=== PATIENT | male | born 1975 | race Caucasian/White ===

== ENCOUNTER → 2018-08-21 | Outpatient (REF) | payer BC ==
[2018-08-21 13:38] LABS: BASO % 0.6 % (0.0-1.0); EOS # 0.1 10^3/uL (0.0-0.50); EOS % 1.9 % (0.0-3.0); HEMATOCRIT 45.2 % (42.0-52.0); HEMOGLOBIN 14.9 g/dl (13.5-17.5); LYMPH # 2.1 10^3/uL (1.5-4.5); LYMPH % 33.3 % (24.0-44.0); MEAN CORPUSCULAR HEMOGLOBIN 29.7 pg (27.0-33.0); MEAN CORPUSCULAR VOLUME 90.2 fl (80.0-96.0); MONO # 0.4 10^3/uL (0.0-0.8); MONO % 5.8 % (0.0-5.0); NEUTROPHILS # 3.6 10^3/uL (1.8-7.7); NEUTROPHILS % 58.1 % (36.0-66.0); PLATELET COUNT, AUTOMATED 242 10^3/uL (150-450); RED BLOOD COUNT 5.01 10^6/uL (4.30-6.10); WHITE BLOOD COUNT 6.2 10^3/uL (4.0-10.0)
[2018-08-21 13:49] LABS: ALBUMIN 3.7 GM/DL (3.2-5.2); ALT/SGPT 41 U/L (12-78); BILIRUBIN,TOTAL 0.5 MG/DL (0.2-1.0); BLOOD UREA NITROGEN 18 MG/DL (7-18); CALCIUM LEVEL 9.3 MG/DL (8.5-10.1); CARBON DIOXIDE LEVEL 27 MEQ/L (21-32); CHLORIDE LEVEL 106 MEQ/L (98-107); CREATININE FOR GFR 0.71 MG/DL (0.70-1.30); GLOMERULAR FILTRATION RATE > 60.0 (>60); GLUCOSE, FASTING 202 MG/DL (70-100); POTASSIUM SERUM 4.2 MEQ/L (3.5-5.1); SODIUM LEVEL 140 MEQ/L (136-145); TOTAL PROTEIN 7.8 GM/DL (6.4-8.2)
[2018-08-21 14:56] LABS: ERYTHROCYTE SEDIMENTATION RATE 12 mm/hr (0-15)
== END ==
LOC: M LABNEURO 10:18
PROVIDERS: ATTEND Psychiatry & Neurology Neurology
DX: E11.9 Type 2 diabetes mellitus without complications (principal); H53.40 Unspecified visual field defects

== ENCOUNTER → 2018-12-30 | Outpatient (CLI) | payer BC ==
--- NOTE | 2019-01-07 01:23 | ECWPNPC ---
PATIENT NAME: AUSTIN HAGEN : 1975 GENDER: MALE VISIT DATE: 12/30/2018 DISCHARGE DATE: 12/30/18 1646 VISIT LOCKED DATE TIME: PHYSICIAN: KARLA GARRIDO MD RESOURCE: KARLA GARRIDO MD REASON FOR APPOINTMENT 1. PRE-SEDATE HISTORY OF PRESENT ILLNESS PAIN SCREENING: PATIENT HAS A COMPLAINT OF ACUTE OR CHRONIC PAIN :YES 43 YEAR OLD MALE PATIENT WITH A HISTORY OF CHRONIC CHANGES OF EYE RETINA. THE PATIENT IS BEING SEEN BY A NEUROLOGIST DUE TO AN INCREASE OF INTRACRANIAL PRESSURE. THE PATIENT WAS REFERRED TO US BY DR. ISIDRO FOR A SPINAL TAP AND IS HERE TODAY FOR A PRE SEDATION PHYSICAL. PATIENT DENIES UNEXPLAINABLE WEIGHT LOSS, FEVER, CHILLS, NEW CHANGES ON HIS URINARY OR BOWEL CONTROL. FALL RISK SCREENING: SCREENING :NO FALLS REPORTED IN THE LAST YEAR CURRENT MEDICATIONS TAKING METFORMIN HCL 1000 MG TABLET 1 TABLET WITH A MEAL ORALLY BID TAKING FARXIGA 10 MG TABLET 1 TABLET ORALLY ONCE A DAY TAKING CLARITIN 10 MG TABLET 1 TABLET ORALLY ONCE A DAY TAKING LISINOPRIL 2.5 MG TABLET 1 TABLET ORALLY ONCE A DAY TAKING ASPIRIN 81 81 MG TABLET DELAYED RELEASE 1 TABLET ORALLY ONCE A DAY TAKING SERTRALINE HCL 100 MG TABLET 2 TABLET ORALLY ONCE A DAY TAKING LIPITOR 10 MG TABLET 1 TABLET ORALLY ONCE A DAY TAKING TYLENOL 325 MG TABLET 1 TABLET NEEDED ORALLY EVERY 4 HRS MEDICATION LIST REVIEWED AND RECONCILED WITH THE PATIENT PAST MEDICAL HISTORY DIABETES ANXIETY DYSLIPIDEMIA VITAMIN D DEFICIENCY ALLERGIES BEE POLLEN SURGICAL HISTORY ANAL FISTULOTOMY CARPAL TUNNEL SURGERY FAMILY HISTORY FATHER: DIAGNOSED WITH DIABETES PT HAS A SISTER WITH HISTORY OF SEIURES, FIBROMYALGIA, AND LUPUSFATHER HAS HISTORY OF DIABETES. SOCIAL HISTORY GENERAL: TOBACCO USE ARE YOU A:NONSMOKER PAIN CLINIC PFS, CLERGY, PUBLIC HEALTH REFERRALS HAS THE PATIENT BEEN EDUCATED REGARDING HIS/HER PLAN OF CARE?YES HAS THE PATIENT BEEN EDUCATED REGARDING PAIN, THE RISK FOR PAIN, THE IMPORTANCE OF EFFECTIVE PAIN MANAGEMENT, AND THE PAIN ASSESSMENT PROCESS?YES LATEX QUESTIONNAIRE LATEX ALLERGY : HAVE YOU EVER DEVELOPED ANY TYPE OF REACTION AFTER HANDLING LATEX PRODUCTS SUCH RUBBER GLOVES, CONDOMS, DIAPHRAGMS, BALLOONS, SOCKS, OR UNDERWEAR?NO LATEX ALLERGY : HAVE YOU EVER DEVELOPED ANY TYPE OF REACTION DURING OR AFTER DENTAL APPOINTMENT, VAGINAL/RECTAL EXAMINATION, SURGICAL PROCEDURE, OR ANY OTHER EXPOSURE?NO LATEX RISK : HAVE YOU EVER HAD ANY DIFFICULTY BREATHING OR HIVES AFTER EATING OR HANDLING ANY FRUITS, OR VEGETABLES; SUCH KIWI, BANANAS, STONE FRUITS, OR CHESTNUTSNO LATEX RISK : DO YOU HAVE A PREVIOUS PERSONAL HISTORY OF MORE THAN NINE SURGERIES, SPINA BIFIDA, OR REPEATED CATHERIZATIONS? NO LATEX RISK : ARE YOU FREQUENTLY EXPOSED TO LATEX PRODUCTS IN YOUR OCCUPATION?NO DATE ASKED : 12/30/2018 ADVANCE DIRECTIVE ADVANCE DIRECTIVE DISCUSSED WITH PATIENT:YES HCP IS TRACIE HAGEN LANGUAGE LANGUAGES SPOKEN:ESTONIAN MARITAL STATUS: . ALCOHOL SCREENING DID YOU HAVE A DRINK CONTAINING ALCOHOL IN THE PAST YEAR?NO POINTS0 INTERPRETATIONNEGATIVE RECREATIONAL DRUG USE DRUG USE?NO LEARNING BARRIERS / SPECIAL NEEDS BARRIERS TO LEARNING?NO HEARING IMPAIRED?NO VISION IMPAIRED?YES :CORRECTIVE LENSES COGNITIVELY IMPAIRED?NO READINESS TO LEARN?YES REVIEWED WITH PATIENT 12/30/18 0507 BV. HOSPITALIZATION/MAJOR DIAGNOSTIC PROCEDURE SEE ABOVE REVIEW OF SYSTEMS REVIEWED BY: PROVIDER: KARLA GARRIDO MD . CONSTITUTIONAL: ANY CHANGE IN YOUR MEDICAL CONDITION? NO . CHILLS NO . FEVER NO . INFECTION: DO YOU HAVE NEW INFECTIONS? NO . DO YOU HAVE HISTORY OF MRSA? NO . MUSCULOSKELETAL: ANY NEW PATTERNS OF PAIN OR NUMBNESS? NO . SYTEMIC LUPUS NO . GASTROENTEROLOGY: ANY NEW CHANGE IN BOWEL CONTROL? NO . BARRETTS ESOPHAGUS NO . CIRRHOSIS NO . HEPATITIS NO . LIVER FAILURE NO . ACID REFLUX NO . UNEXPLAINED WEIGHT LOSS NO . GENITOURINARY: ANY NEW CHANGE IN BLADDER CONTROL? NO . IS THERE A CHANCE YOU COULD BE ? NO . HEMATOLOGY/LYMPH: DO YOU TAKE ANY BLOOD THINNERS? (FOR EXAMPLE- COUMADIN, PLAVIX, AGGRENOX, PLATEL, PRADAXA, OR XARELTO) NO . WHEN WAS YOUR LAST DOSE? DATE: TIME: . LOW PLATELET COUNT NO . SICKLE CELL DISEASE NO . VON WILLIEBRANDS NO . FACTOR V LEIDEN NO . THALLASEMIA NO . ANEMIA NO . EASY BRUISING NO . NEUROLOGY: HAVE YOU FALLEN IN THE PAST 12 MONTHS? NO . ANY NEW EXTREMITY NUMBNESS OR WEAKNESS? NO . HEAD INJURY NO . DEMENTIA NO . CEREBRAL PALSY NO . MULTIPLE SCLEROSIS NO . DIZZINESS NO . HEADACHE PT STATES HE HAS HISTORY OF FREQUENT HEADACHES, BUT STATES SINCE CHANGING PRESCRIPTION EYEGLASSES, HEADACHES HAVE IMPROVED . STROKES NO . VERTIGO NO . CARDIOLOGY: DO YOU HAVE A PACEMAKER OR DEFIBRILLATOR? NO . ANGINA NO . HEART ATTACK NO . HEART SURGERY NO . CONGESTIVE HEART FAILURE/FLUID OVERLOAD NO . CHEST PAIN NO . HIGH BLOOD PRESSURE ON MEDICATION(S) . IRREGULAR HEART BEAT NO . RESPIRATORY: HAVE YOU BEEN SICK IN THE PAST WEEK? NO . FEVER NO . FLU LIKE SYMPTOMS? NO . CPAP NO . BYPAP NO . ASTHMA NO . EMPHYSEMA NO . CHRONIC LUNG DISEASES NO . SHORTNESS OF BREATH ON EXERTION NO . COUGH NO . SNORING YES . INTEGUMENTARY: DO YOU HAVE ANY RASHES OR OPEN SORES? NO . ALLERGIC/IMMUNO: ARE YOU ALLERGIC TO IV DYE? NO . ANY NEW ALLERGIES? NO . PSYCHIATRIC: DO YOU HAVE THOUGHTS OF HURTING YOURSELF OR SOMEONE ELSE? NO . ARE YOU ABUSED, NEGLECTED, OR IN AN UNSAFE ENVIRONMENT? NO . ENDOCRINOLOGY: ARE YOU DIABETIC? YES, ON MEDICATION . THYROID DISORDER NO . OTHER: DO YOU NEED ANY PRESCRIPTIONS? NO . IF YES, PLEASE LIST: ____ . ANY NEW PROBLEMS WITH YOUR MEDICATIONS? NO . WHEN DID YOU LAST EAT? ____ . WHEN DID YOU LAST DRINK? ____ . WHAT DID YOU LAST DRINK? ____ . NAME OF PERSON DRIVING YOU HOME? ____ . DO YOU HAVE ANY OTHER QUESTIONS OR CONCERNS NO . VITAL SIGNS WT 263.8 LBS, HT 69 IN, BMI 38.95 INDEX, BP 139/78 MM HG, HR 79 /MIN, RR 97 /MIN, TEMP 97.1 F, OXYGEN SAT % 97%, NA INITIALS SC 15:57, REVIEWED BY: BV. EXAMINATION GENERAL EXAMINATION: PATIENT IS ALERT O X 3 AND COOPERATIVE. LUNGS CLEAR, TO AUSCULTATION. HEART: NO MURMURS OR GALLOPS; FACIAL CRANIAL NERVES ARE GROSSLY NORMAL. GOOD SYMMETRY OF FACIAL MUSCLE MOVEMENT. NORMAL VISUAL PRESCOTT. PATIENT IS WALKING WITH A NORMAL GAIT. LEFT LEG IS WEAKER AT EXTENSION AND FLEXION. NOTE AND SPINAL TAP ORDER FROM PATIENT'S NEUROLOGIST, DR. ISIDRO, IS PRESENT IN PATIENT'S CHART. ASSESSMENTS NEUROLOGICAL SYMPTOMS - R29.90 (PRIMARY) R/O PSEUDOTUMOR CEREBRI. TREATMENT NEUROLOGICAL SYMPTOMS CLINICAL NOTES: WE DISCUSSED SEVERAL ISSUES WITH MR. HAGEN'Marycarmen. THE PATIENT WILL COME IN FOR A SPINAL TAP IN THE NEXT FEW WEEKS. WE DISCUSSED THE BENEFITS AND RISKS OF THE PROCEDURE AND THE PATIENT WOULD LIKE TO PROCEED. INSTRUCTIONS WERE GIVEN, QUESTIONS WERE ANSWERED, PATIENT REPORTS UNDERSTANDING AND AGREES WITH THE PLAN. ITODD, DOCUMENTED THE ABOVE INFORMATION ACTING A SCRIBE FOR DR. GARRIDO. I HAVE REVIEWED THE ABOVE DOCUMENT, WRITTEN BY TODD BAIN SCRIBE AND I VERIFY THAT IT IS ACCURATE. . PREVENTIVE MEDICINE PAIN CLINIC TEACHING: PROCEDURE TEACHING PT GIVEN WRITTEN AND VERBAL PRE PROCEDURE INSTRUCTIONS. PT VERBALIZES UNDERSTANDING OF ALL INSTRUCTONS. ANITA CURTIS 12/30/2018 4:48:32 PM > . PROCEDURE CODES FA211 ESTABILISHED PATIENT [facility] FACILITY CHARGE G8427 CURRENT MEDS W/DOSAGES DOCUMENTED G8730 PAIN ASSESS POS TOOL F/U PLAN DOC DISPOSITION & COMMUNICATION FOLLOW UP 3 WEEKS ELECTRONICALLY SIGNED BY KARLA GARRIDO MD, ON 01/06/2019 AT 11:56 AM EST DISCLAIMER : THIS IS A VISIT SUMMARY EXTRACTED FROM THE [employer] CHART. IT IS NOT A COPY OF THE [employer] PROGRESS NOTE. REMINGTON
== END ==
LOC: M PAIN 15:45
PROVIDERS: ATTEND Anesthesiology
DX: R29.90 Unspecified symptoms and signs involving the nervous system (principal); E11.9 Type 2 diabetes mellitus without complications; F41.9 Anxiety disorder, unspecified; E78.5 Hyperlipidemia, unspecified; E55.9 Vitamin D deficiency, unspecified; Z91.030 Bee allergy status; Z79.84 Long term (current) use of oral hypoglycemic drugs; Z79.899 Other long term (current) drug therapy

== ENCOUNTER → 2019-01-01 | Outpatient (CLI) | payer BC ==
[~2019-01-01] MED LIST: LIDOCAINE 1% SDV INJ 30 ML VIAL As Ordered ONE; MIDAZOLAM INJ 2 MG/2 ML VIAL (J2250) As Ordered ONE; fentaNYL 100 MCG/2 ML INJECTION (J3010) As Ordered ONE
[2019-01-01 16:14] LABS: APPEARANCE, CSF CLEAR (CLEAR); COLOR, CSF COLORLESS (COLORLESS); CSF TUBE# CELL CNT TUBE 3
[2019-01-01 16:26] LABS: CSF TUBE# GLU TUBE 1; CSF TUBE# TP TUBE 1; GLUCOSE CSF 90 MG/DL (40-75); TOTAL PROTEIN,CSF 60 MG/DL (15-45)
--- NOTE | 2019-01-21 05:15 | ECWPNPC ---
PATIENT NAME: AUSTIN HAGEN : 1975 GENDER: MALE VISIT DATE: 01/01/2019 DISCHARGE DATE: 01/01/19 1612 VISIT LOCKED DATE TIME: PHYSICIAN: KARLA GARRIDO MD RESOURCE: KARLA GARRIDO MD REASON FOR APPOINTMENT 1. SPINAL TAP HISTORY OF PRESENT ILLNESS HISTORY OF PRESENT ILLNESS: PAIN THE PATIENT DESCRIBES THE PAIN... FALL RISK SCREENING: SCREENING :NO FALLS REPORTED IN THE LAST YEAR CURRENT MEDICATIONS TAKING METFORMIN HCL 1000 MG TABLET 1 TABLET WITH A MEAL ORALLY BID, NOTES: 12/31/18 TAKING FARXIGA 10 MG TABLET 1 TABLET ORALLY ONCE A DAY, NOTES: 12/31/09 TAKING CLARITIN 10 MG TABLET 1 TABLET ORALLY ONCE A DAY, NOTES: 12/31/18 TAKING LISINOPRIL 2.5 MG TABLET 1 TABLET ORALLY ONCE A DAY, NOTES: 12/31/18 TAKING ASPIRIN 81 81 MG TABLET DELAYED RELEASE 1 TABLET ORALLY ONCE A DAY, NOTES: 12/31/18 TAKING SERTRALINE HCL 100 MG TABLET 2 TABLET ORALLY ONCE A DAY, NOTES: 12/31/18 TAKING LIPITOR 10 MG TABLET 1 TABLET ORALLY ONCE A DAY, NOTES: 12/31/18 TAKING TYLENOL 325 MG TABLET 1 TABLET NEEDED ORALLY EVERY 4 HRS, NOTES: NONE RECENT MEDICATION LIST REVIEWED AND RECONCILED WITH THE PATIENT PAST MEDICAL HISTORY DIABETES ANXIETY DYSLIPIDEMIA VITAMIN D DEFICIENCY ALLERGIES BEE POLLEN: ANAPHYLAXIS - ALLERGY SURGICAL HISTORY ANAL FISTULOTOMY CARPAL TUNNEL SURGERY FAMILY HISTORY FATHER: DIAGNOSED WITH DIABETES PT HAS A SISTER WITH HISTORY OF SEIURES, FIBROMYALGIA, AND LUPUSFATHER HAS HISTORY OF DIABETES. SOCIAL HISTORY GENERAL: TOBACCO USE ARE YOU A:NONSMOKER PAIN CLINIC PFS, CLERGY, PUBLIC HEALTH REFERRALS HAS THE PATIENT BEEN EDUCATED REGARDING HIS/HER PLAN OF CARE?YES HAS THE PATIENT BEEN EDUCATED REGARDING PAIN, THE RISK FOR PAIN, THE IMPORTANCE OF EFFECTIVE PAIN MANAGEMENT, AND THE PAIN ASSESSMENT PROCESS?YES LATEX QUESTIONNAIRE LATEX ALLERGY : HAVE YOU EVER DEVELOPED ANY TYPE OF REACTION AFTER HANDLING LATEX PRODUCTS SUCH RUBBER GLOVES, CONDOMS, DIAPHRAGMS, BALLOONS, SOCKS, OR UNDERWEAR?NO LATEX ALLERGY : HAVE YOU EVER DEVELOPED ANY TYPE OF REACTION DURING OR AFTER DENTAL APPOINTMENT, VAGINAL/RECTAL EXAMINATION, SURGICAL PROCEDURE, OR ANY OTHER EXPOSURE?NO LATEX RISK : HAVE YOU EVER HAD ANY DIFFICULTY BREATHING OR HIVES AFTER EATING OR HANDLING ANY FRUITS, OR VEGETABLES; SUCH KIWI, BANANAS, STONE FRUITS, OR CHESTNUTSNO LATEX RISK : DO YOU HAVE A PREVIOUS PERSONAL HISTORY OF MORE THAN NINE SURGERIES, SPINA BIFIDA, OR REPEATED CATHERIZATIONS? NO LATEX RISK : ARE YOU FREQUENTLY EXPOSED TO LATEX PRODUCTS IN YOUR OCCUPATION?NO DATE ASKED : 01/01/2019 ADVANCE DIRECTIVE ADVANCE DIRECTIVE DISCUSSED WITH PATIENT:YES PT HAS HCP FOR TRACIE HAGEN TAOIST TAOIST NO ORIENTAL ORTHODOX BELIEFS THAT WOULD IMPACT HEALTH CARE. LANGUAGE LANGUAGES SPOKEN:JAPANESE ALCOHOL SCREENING DID YOU HAVE A DRINK CONTAINING ALCOHOL IN THE PAST YEAR?NO POINTS0 INTERPRETATIONNEGATIVE RECREATIONAL DRUG USE DRUG USE?NO LEARNING BARRIERS / SPECIAL NEEDS BARRIERS TO LEARNING?NO HEARING IMPAIRED?NO VISION IMPAIRED?YES :CORRECTIVE LENSES COGNITIVELY IMPAIRED?NO READINESS TO LEARN?YES REVIEWED WITH PATIENT 12/30/18 1547 BVREVIEWED WITH PATIENT 01/01/19 1500 BV. HOSPITALIZATION/MAJOR DIAGNOSTIC PROCEDURE SEE SURGERIES ABOVE REVIEW OF SYSTEMS REVIEWED BY: PROVIDER: . CONSTITUTIONAL: ANY CHANGE IN YOUR MEDICAL CONDITION? NO . CHILLS NO . FEVER NO . INFECTION: DO YOU HAVE NEW INFECTIONS? NO . DO YOU HAVE HISTORY OF MRSA? NO . MUSCULOSKELETAL: ANY NEW PATTERNS OF PAIN OR NUMBNESS? NO . GASTROENTEROLOGY: ANY NEW CHANGE IN BOWEL CONTROL? NO . GENITOURINARY: ANY NEW CHANGE IN BLADDER CONTROL? NO . IS THERE A CHANCE YOU COULD BE ? NO . HEMATOLOGY/LYMPH: DO YOU TAKE ANY BLOOD THINNERS? (FOR EXAMPLE- COUMADIN, PLAVIX, AGGRENOX, PLATEL, PRADAXA, OR XARELTO) NO . WHEN WAS YOUR LAST DOSE? DATE: TIME: . NEUROLOGY: HAVE YOU FALLEN IN THE PAST 12 MONTHS? NO . ANY NEW EXTREMITY NUMBNESS OR WEAKNESS? NO . CARDIOLOGY: DO YOU HAVE A PACEMAKER OR DEFIBRILLATOR? NO . RESPIRATORY: HAVE YOU BEEN SICK IN THE PAST WEEK? NO . FEVER NO . FLU LIKE SYMPTOMS? NO . COUGH NO . INTEGUMENTARY: DO YOU HAVE ANY RASHES OR OPEN SORES? NO . ALLERGIC/IMMUNO: ARE YOU ALLERGIC TO IV DYE? NO . ANY NEW ALLERGIES? NO . PSYCHIATRIC: DO YOU HAVE THOUGHTS OF HURTING YOURSELF OR SOMEONE ELSE? NO . ARE YOU ABUSED, NEGLECTED, OR IN AN UNSAFE ENVIRONMENT? NO . ENDOCRINOLOGY: ARE YOU DIABETIC? YES . OTHER: DO YOU NEED ANY PRESCRIPTIONS? NO . IF YES, PLEASE LIST: ____ . ANY NEW PROBLEMS WITH YOUR MEDICATIONS? NO . WHEN DID YOU LAST EAT? 12/31/18 1900 . WHEN DID YOU LAST DRINK? 01/01/19 1130 . WHAT DID YOU LAST DRINK? WATER . NAME OF PERSON DRIVING YOU HOME? TRACIE GARNO- . DO YOU HAVE ANY OTHER QUESTIONS OR CONCERNS NO . VITAL SIGNS WT 267.6 LBS, HT 69 IN, BMI 39.51 INDEX, BP 130/77 MM HG, HR 58 /MIN, RR 18 /MIN, TEMP 97.7 F, OXYGEN SAT % 96%, SAFE IN ENV? (Y/N) YES, NA INITIALS AW 1302, REVIEWED BY: BV. ASSESSMENTS ENCOUNTER FOR LUMBAR PUNCTURE - Z01.89 (PRIMARY) R/O PSEUDOTUMOR CEREBRI. TREATMENT ENCOUNTER FOR LUMBAR PUNCTURE CLINICAL NOTES: SPINAL TAP WITH IV SEDATION - PLEASE SEE [employer] Assistant[employer]CH. PROCEDURE CODES 91529 MOD SED SAME PHYS/QHP 5/>YRS [id number] LUMBAR PUNCTURE DISPOSITION & COMMUNICATION FOLLOW UP REASON: F/UP WITH NEUROLOGIST/ CALL NEEDED ELECTRONICALLY SIGNED BY KARLA GARRIDO MD, ON 01/20/2019 AT 05:19 PM EST DISCLAIMER : THIS IS A VISIT SUMMARY EXTRACTED FROM THE [employer] CHART. IT IS NOT A COPY OF THE [employer] PROGRESS NOTE. [place]
== END ==
LOC: M PAIN 13:00
PROVIDERS: ATTEND Anesthesiology
DX: Z01.89 Encounter for other specified special examinations (principal); E11.9 Type 2 diabetes mellitus without complications; Z86.59 Personal history of other mental and behavioral disorders; E78.5 Hyperlipidemia, unspecified; Z91.030 Bee allergy status; Z79.82 Long term (current) use of aspirin; Z79.84 Long term (current) use of oral hypoglycemic drugs; Z79.899 Other long term (current) drug therapy
CPT/HCPCS: 36415; 62270; 82784; 82945; 83916; 84157; 87070; 87102; 87205; 87252; 87483; 88108; 88313; 89050; 99152; J2250; J3010

== ENCOUNTER 2020-09-11 21:10 | Emergency (ER) | payer BC ==
[~2020-09-11] VITALS: Ht 172.7 cm; Wt 116.6 kg
[2020-09-11] MEDS ORDERED: ZOLO100T PO (21:21)
[2020-09-11] MEDS ORDERED: LORA-930 PO (21:24)
[2020-09-11] MEDS ORDERED: ATOR1TAB19 PO (21:24)
[2020-09-11] MEDS ORDERED: ASPI81TA26 PO (21:24)
[2020-09-11] MEDS ORDERED: ACET50CA PO (21:24)
[2020-09-11] MEDS ORDERED: LISI10TA22 PO (21:24)
[2020-09-11] MEDS ORDERED: METF-877 PO (21:24)
[2020-09-11] MEDS ORDERED: FARX1TAB3 PO (21:24)
[2020-09-11] MEDS ORDERED: DIPH12.529 PO (21:28)
[2020-09-12] MEDS ORDERED: HYDROCORTISONE 1% CREAM 30 GM TOP ONE (00:05)
[2020-09-12] MEDS ORDERED: diphenhydrAMINE 50MG CAP PO ONE (00:05)
[2020-09-12 00:40] VITALS: BP 140/82
== END 2020-09-12 00:46 | disposition home or self-care (01) ==
LOC: M ED 21:10
DX: T63.441A Toxic effect of venom of bees, accidental (unintentional), initial encounter (principal); E11.9 Type 2 diabetes mellitus without complications; Z79.82 Long term (current) use of aspirin; Z79.84 Long term (current) use of oral hypoglycemic drugs; Z79.899 Other long term (current) drug therapy; Z91.030 Bee allergy status

== ENCOUNTER 2024-03-18 12:00 | Emergency (ER) | payer BC ==
[~2024-03-18] VITALS: Ht 172.7 cm; Wt 97.3 kg
[~2024-03-18 12:00] MED LIST changes: +ACET50CA PO; +ASPI81TA26 PO; +ATOR1TAB19 PO; +DIPH12.529 PO; +FARX1TAB3 PO; -LIDOCAINE 1% SDV INJ 30 ML VIAL As Ordered ONE; +LISI10TA22 PO; +LORA-930 PO; +METF-877 PO; -MIDAZOLAM INJ 2 MG/2 ML VIAL (J2250) As Ordered ONE; +ZOLO100T PO; -fentaNYL 100 MCG/2 ML INJECTION (J3010) As Ordered ONE
[2024-03-18 12:14] VITALS: BP 126/73; TEMP 98.3; O2SAT 96
[2024-03-18 13:21] LABS: BASO % 0.3 % (0.0-1.0); EOS % 0.2 % (0.0-3.0); HEMATOCRIT 38.4 % (42.0-52.0); HEMOGLOBIN 13.4 g/dl (13.5-17.5); LYMPH # 0.8 10^3/uL (1.5-5.0); LYMPH % 13.6 % (24.0-44.0); MEAN CORPUSCULAR HGB CONC 34.9 g/dl (32.0-36.5); MEAN CORPUSCULAR VOLUME 86.1 fl (80.0-96.0); MONO # 0.4 10^3/uL (0.0-0.8); MONO % 6.8 % (2.0-8.0); NEUTROPHILS # 4.6 10^3/uL (1.5-8.5); NEUTROPHILS % 78.6 % (36.0-66.0); PLATELET COUNT, AUTOMATED 186 10^3/uL (150-450); RED BLOOD COUNT 4.46 10^6/uL (4.30-6.10); WHITE BLOOD COUNT 5.9 10^3/uL (4.0-10.0)
[2024-03-18 13:44] LABS: BLOOD UREA NITROGEN 17 MG/DL (9-23); CALCIUM LEVEL 9.5 MG/DL (8.5-10.1); CARBON DIOXIDE LEVEL 26 MMOL/L (20-31); CHLORIDE LEVEL 103 MMOL/L (98-107); CREATININE FOR GFR 0.98 MG/DL (0.70-1.30); GLOMERULAR FILTRATION RATE > 60.0 (>60); GLUCOSE, FASTING 187 MG/DL (60-100); POTASSIUM SERUM 3.5 MMOL/L (3.5-5.1); SODIUM LEVEL 138 MMOL/L (136-145)
[2024-03-18 14:33] LABS: KETONE, URINE AUTO RFX 1+ mg/dL (NEGATIVE); LEUKOCYTE ESTERASE UR AUTO RFX NEGATIVE (NEGATIVE); MUCUS, URINE RFX MODERATE (NEGATIVE); NITRITE, URINE AUTO RFX NEGATIVE (NEGATIVE); RBC, URINE AUTO RFX TNTC /HPF (0-3); SQUAM EPITHELIAL CELL UR AURFX 1 /HPF (0-6); WBC, URINE AUTO RFX 0 /HPF (0-3)
[2024-03-18] MEDS ORDERED: METF-838 PO (14:40)
[2024-03-18] MEDS ORDERED: TOPI-21 PO (14:40)
[2024-03-18] MEDS ORDERED: HOME MED LIST COMPLETE! XX SCH (14:40)
[2024-03-18] MEDS ORDERED: ATOR80TA59 PO (14:40)
[2024-03-18] MEDS ORDERED: VITA500045 PO (14:40)
[2024-03-18] MEDS ORDERED: SEMA1PEN2 SQ (14:40)
[2024-03-18] MEDS ORDERED: ONDA-282 PO (14:59)
[2024-03-18] MEDS ORDERED: KETO10TAB PO (14:59)
[2024-03-18] MEDS ORDERED: FLOM0.4C39 PO (14:59)
[2024-03-18] MEDS ORDERED: PERC5TAB12 PO (14:59)
== END 2024-03-18 15:56 | disposition home or self-care (01) ==
LOC: EDBD 12:00 → M ED 12:00
DX: N20.1 Calculus of ureter (principal); E11.9 Type 2 diabetes mellitus without complications; I10 Essential (primary) hypertension; E78.5 Hyperlipidemia, unspecified; Z91.030 Bee allergy status; Z79.1 Long term (current) use of non-steroidal anti-inflammatories (NSAID); Z79.84 Long term (current) use of oral hypoglycemic drugs; Z79.4 Long term (current) use of insulin; Z79.899 Other long term (current) drug therapy

== ENCOUNTER 2025-01-23 10:58 | Emergency (ER) | payer BC ==
[~2025-01-23] VITALS: Ht 175.3 cm; Wt 92.3 kg
[~2025-01-23 10:58] MED LIST changes: +ABIL1TAB13 PO; +ATOR80TA59 PO; +CLOP75TA99 PO; +ERGO125013 PO; +EZET10TA57 PO; +FARX1TAB5 PO; +KETO10TAB PO; +METF-838 PO; +ONDA-282 PO; +PERC5TAB12 PO; +SEMA1PEN2 SQ; +TAMS-18 PO; +TOPI-21 PO
[2025-01-23 12:06] LABS: BASO # 0.0 10^3/uL (0.0-0.2); BASO % 0.0 % (0.0-1.0); EOS # 0.0 10^3/uL (0.0-0.5); EOS % 0.2 % (0.0-3.0); LYMPH # 0.8 10^3/uL (1.5-5.0); LYMPH % 13.6 % (24.0-44.0); MONO # 0.5 10^3/uL (0.0-0.8); MONO % 8.0 % (2.0-8.0); NEUTROPHILS # 4.6 10^3/uL (1.5-8.5); NEUTROPHILS % 77.5 % (36.0-66.0); PLATELET COUNT, AUTOMATED 268 10^3/uL (150-450)
[2025-01-23] MEDS: ACETAMINOPHEN *IV* 1,000 MG in IV 1 EA IV ONE (12:10)
[2025-01-23] MEDS: NS (Normal Saline) 0.9% 1,000 ML IV ONE (12:10)
[2025-01-23 12:46] LABS: C REACTIVE PROTEIN QUANTITATIV 4.25 MG/DL (<1.0)
[2025-01-23 12:51] LABS: ALT/SGPT 16 U/L (7.0-40); AST/SGOT 23 U/L (<34); CALCIUM LEVEL 6.5 MG/DL (8.5-10.1); CARBON DIOXIDE LEVEL 25 MMOL/L (20-31); CHLORIDE LEVEL 103 MMOL/L (98-107); CREATININE FOR GFR 0.57 MG/DL (0.70-1.30); GLOMERULAR FILTRATION RATE > 90.0 (>60); POTASSIUM SERUM 2.5 MMOL/L (3.5-5.1); SODIUM LEVEL 139 MMOL/L (136-145)
[2025-01-23] MEDS ORDERED: ISOVUE-370 76% 100 ML VIAL As Ordered ONE (13:01)
[2025-01-23] MEDS: KCL 40MEQ in NS 1000ML 1,000 ML IV ONE (13:15)
[2025-01-23] MEDS: KETOROLAC 30 MG/ML 1 ML VIAL IV ONE (13:16)
[2025-01-23] MEDS: PIPERACILLIN/TAZOBACTAM SOD 4.5 GM in DEXTROSE 5% (D5W) ADV/MINI-BAG 50 ML IV ONE (13:16)
[2025-01-23 15:57] VITALS: TEMP 97.7
[2025-01-23 17:18] LABS: CALCIUM LEVEL 6.8 MG/DL (8.5-10.1); CARBON DIOXIDE LEVEL 26 MMOL/L (20-31); CHLORIDE LEVEL 103 MMOL/L (98-107); CREATININE FOR GFR 0.70 MG/DL (0.70-1.30); GLOMERULAR FILTRATION RATE > 90.0 (>60); POTASSIUM SERUM 2.9 MMOL/L (3.5-5.1); SODIUM LEVEL 140 MMOL/L (136-145)
[2025-01-23] MEDS: POTASSIUM CHLORIDE 10MEQ SR TABLET PO ONE (17:48)
[2025-01-23] MEDS ORDERED: ONDA-282 PO (18:24)
[2025-01-23] MEDS ORDERED: SUCR1SS PO (18:24)
[2025-01-23] MEDS ORDERED: POTA-141 PO (18:27)
[2025-01-23 18:30] VITALS: BP 97/64
[2025-01-23 18:31] VITALS: O2SAT 88
[2025-01-24] MEDS ORDERED: SUCR1TA PO (09:19)
== END 2025-01-23 18:37 | disposition home or self-care (01) ==
LOC: M ED 10:58
DX: A09 Infectious gastroenteritis and colitis, unspecified (principal); E87.6 Hypokalemia; R11.2 Nausea with vomiting, unspecified; B34.1 Enterovirus infection, unspecified; E11.9 Type 2 diabetes mellitus without complications; I45.81 Long QT syndrome; I10 Essential (primary) hypertension; F32.A Depression, unspecified; Z86.73 Personal history of transient ischemic attack (TIA), and cerebral infarction without residual deficits; Z91.030 Bee allergy status; Z79.1 Long term (current) use of non-steroidal anti-inflammatories (NSAID); Z79.84 Long term (current) use of oral hypoglycemic drugs; Z79.4 Long term (current) use of insulin; Z79.899 Other long term (current) drug therapy
CPT/HCPCS: 36415; 74177; 80048; 80076; 83605; 83690; 85025; 86140; 87040; 87077; 87486; 87581; 87633; 87798; 93005; 93041; 96361; 96365; 96367; 96375; 99285; J0134; J1885; J2543; J3010; Q9967